=== PATIENT | male | born 1995 | race Caucasian/White ===

== ENCOUNTER 2016-10-30 16:26 | Emergency (ER) | payer OTHER ==
--- NOTE | 2016-10-30 17:59 | XR ---
EXAMINATION TYPE: XR chest 1V portable DATE OF EXAM: 10/30/2016 COMPARISON: 08/21/2008 INDICATION: Pain and numbness in hands TECHNIQUE: Single frontal view of the chest is obtained. FINDINGS: The heart size is normal. The pulmonary vasculature is normal. The lungs are clear. IMPRESSION: 1. No acute pulmonary process.
--- NOTE | 2016-10-30 18:38 | ED ---
General Adult HPI - General Chief complaint: Shortness of Breath Stated complaint: Difficulty Breathing/Numbness in Hands Time Seen by Provider: 10/30/16 17:00 Source: patient Mode of arrival: ambulatory Limitations: no limitations - History of Present Illness Initial comments: Patient is a 21-year-old male with history of anxiety, exercise-induced asthma presenting with shortness of breath. Patient states he been having cough congestion for the past 4 days. Denies sick contacts. Patient's been trying roommates albuterol with some relief. Patient denies fever, productive sputum, chest pain, abdominal pain, nausea, vomiting, diarrhea, dysuria. Patient followed up with [facility] yesterday having a chest x-ray and was given antibiotics. Patient has been unable to pay for the antibiotics. - Related Data Home Medications Medication Instructions Recorded Confirmed Albuterol Inhaler [Ventolin Hfa 1 - 2 puff INHALATION RT-QID PRN 10/30/16 Inhaler] FLUoxetine HCL [PROzac] 20 mg PO DAILY 10/30/16 10/30/16 Loratadine [Claritin] 10 mg PO DAILY 10/30/16 10/30/16 Allergies Allergy/AdvReac Type Severity Reaction Status Date / Time No Known Allergies Allergy Verified 10/30/16 17:55 Review of Systems ROS Statement: Those systems with pertinent positive or pertinent negative responses have been documented in the HPI. Constitutional: No fever and no chills. HENT: +congestion, no rhinorrhea and no sore throat. Eyes: No discharge and no redness. Respiratory: +cough and +shortness of breath. Cardiovascular: No chest pain and no palpitations. Gastrointestinal: No nausea, no vomiting, no abdominal pain and no diarrhea. Genitourinary: No dysuria and no hematuria. Musculoskeletal: No back pain and no arthralgias. Skin: No pallor and no rash. Neurological: No dizziness and No headaches. ROS Other: All systems not noted in ROS Statement are negative. Past Medical History Past Medical History: No Reported History History of Any Multi-Drug Resistant Organisms: None Reported Past Surgical History: No Surgical Hx Reported Past Psychological History: No Psychological Hx Reported Smoking Status: Current every day smoker Past Alcohol Use History: Rare Past Drug Use History: None Reported General Exam - General Exam Comments Initial Comments: Constitutional: Patient appears well-developed and well-nourished. No distress. Patient with harsh cough. When talking about patient's breathing he will intermittently talk in one-word sentences however when talking about something interesting to patient he is able to talk in complete sentences Head: Normocephalic and atraumatic. Eyes: Conjunctivae and EOM are normal. Right eye exhibits no discharge. Left eye exhibits no discharge. No scleral icterus. Neck: Normal range of motion. Neck supple. Cardiovascular: Normal rate and regular rhythm. No murmur heard. Pulmonary/Chest: Effort normal and breath sounds normal. No respiratory distress. No wheezes. Abdominal: Soft. No distension. There is no tenderness. There is no rebound and no guarding. Musculoskeletal: Normal range of motion. No edema or tenderness. Neurological: Patient alert and oriented to person, place, and time. Skin: Skin is warm and dry. Not diaphoretic. Nursing notes and vitals reviewed. Limitations: no limitations Course Vital Signs 10/30/16 10/30/16 10/30/16 16:50 17:08 17:14 Temperature 98.1 F Pulse Rate 102 H 80 Respiratory 20 18 20 Rate Blood Pressure 176/74 145/75 O2 Sat by Pulse 98 99 Oximetry 10/30/16 10/30/16 17:58 18:42 Temperature 98.0 F Pulse Rate 75 57 L Respiratory 18 16 Rate Blood Pressure 136/75 139/80 O2 Sat by Pulse 96 96 Oximetry - Reevaluation(s) Reevaluation #1: On reevaluation patient is resting comfortably in bed. Updated on unremarkable chest x-ray. Instructed not to take antibiotics given by urgent care as they did not give a clear-cut reason as to why prescribing him antibiotics and with the current setting of possible viral syndrome. Medical Decision Making - Medical Decision Making Patient is a 21-year-old male presenting with shortness of breath, cough, congestion. Patient presents very anxious with intermittent episodes and talking in clear sentences as well as one-word sentences. Patient is to tobacco abuse as well as marijuana for his anxiety. Patient had an unremarkable chest x-ray here. Patient resting much more comfortable and better without treatment. Patient clear for discharge with outpatient follow- up with his PCP. Prior to discharge, patient was resting comfortably in bed. Course of stay improved. Denies pain. Discussed physical exam and diagnostic tests with patient. Questions answered and patient is agreeable to discharge with close follow up with Primary Care Physician. Instructed to return to Emergency Department if symptoms worsen. Disposition Clinical Impression: Cough, Chest congestion, SOB (shortness of breath), Anxiety Disposition: HOME SELF-CARE Condition: Good Instructions: Asthma (ED), Cold Symptoms (ED) Referrals: Eric Vieyra Jr, DO [Primary Care Provider] - 1-2 days
[2016-10-30 18:43] VITALS: BP 139/80; PULSE 57; RESP 16; TEMP 98
== END 2016-10-30 18:44 | disposition home or self-care (01) ==
LOC: EC 16:26
DX: R06.02 Shortness of breath (principal); R05 Cough; R09.89 Other specified symptoms and signs involving the circulatory and respiratory systems; F41.9 Anxiety disorder, unspecified; F17.200 Nicotine dependence, unspecified, uncomplicated; Z79.899 Other long term (current) drug therapy
CPT/HCPCS: 71010; 99284

== ENCOUNTER 2017-12-08 10:29 | Emergency (ER) | payer BC, OTHER ==
[2017-12-08 10:39] VITALS: BP 126/77; PULSE 95; RESP 18; TEMP 98.3
[2017-12-08] MEDS ORDERED: AZITHROMYCIN 500 MG TAB PO STA (10:55)
[2017-12-08] MEDS ORDERED: cefTRIAXone 250 MG VIAL IM STA (10:55)
--- NOTE | 2017-12-08 10:56 | ED ---
General Adult HPI - General Chief complaint: Upper Respiratory Infection Stated complaint: poss strep Time Seen by Provider: 12/08/17 10:46 Source: patient, RN notes reviewed, old records reviewed Mode of arrival: ambulatory - History of Present Illness Initial comments: This is a 22-year-old male to the ER for evaluation. This male presents for evaluation regards to positive possible strep throat. Patient states that upper extremity infection for about 2-3 days of cough congestion and increasing sore throat. Patient is no medical history takes no medications no significant known sick contacts. No fevers. No difficulty breathing. No pain. Patient has mild pain with swallowing. Patient upon leaving the room states he also wants to be checked for STD - Related Data Previous Rx's Medication Instructions Recorded Amoxicillin 500 mg PO Q8H #30 capsule 12/08/17 Allergies Allergy/AdvReac Type Severity Reaction Status Date / Time No Known Allergies Allergy Verified 12/08/17 10:50 Review of Systems ROS Statement: Those systems with pertinent positive or pertinent negative responses have been documented in the HPI. ROS Other: All systems not noted in ROS Statement are negative. Past Medical History Past Medical History: No Reported History History of Any Multi-Drug Resistant Organisms: None Reported Past Surgical History: No Surgical Hx Reported Past Psychological History: No Psychological Hx Reported Smoking Status: Former smoker Past Alcohol Use History: Rare Past Drug Use History: None Reported General Exam General appearance: alert, in no apparent distress Head exam: Present: atraumatic, normocephalic, normal inspection Eye exam: Present: normal appearance, PERRL, EOMI. Absent: scleral icterus, conjunctival injection, periorbital swelling ENT exam: Present: normal exam, mucous membranes moist, other (Bilateral tonsillar erythema) Neck exam: Present: normal inspection. Absent: tenderness, meningismus, lymphadenopathy Respiratory exam: Present: normal lung sounds bilaterally. Absent: respiratory distress, wheezes, rales, rhonchi, stridor Cardiovascular Exam: Present: regular rate, normal rhythm, normal heart sounds. Absent: systolic murmur, diastolic murmur, rubs, gallop, clicks GI/Abdominal exam: Present: soft, normal bowel sounds. Absent: distended, tenderness, guarding, rebound, rigid Extremities exam: Present: normal inspection, full ROM, normal capillary refill. Absent: tenderness, pedal edema, joint swelling, calf tenderness Back exam: Present: normal inspection Neurological exam: Present: alert, oriented X3, CN II-XII intact Psychiatric exam: Present: normal affect, normal mood Skin exam: Present: warm, dry, intact, normal color. Absent: rash Course Vital Signs 12/08/17 10:36 Temperature 98.3 F Pulse Rate 95 Respiratory 18 Rate Blood Pressure 126/77 O2 Sat by Pulse 98 Oximetry Medical Decision Making - Medical Decision Making 22 male the ER with pharyngitis on exam. Patient also has positive symptoms of STI, will treat appropriately - Lab Data Lab Results 12/08/17 Range/Units 11:01 Urine Color Yellow Urine Appearance Clear (Clear) Urine pH 6.5 (5.0-8.0) Ur Specific [place] 1.024 (1.001-1.035) Urine Protein Trace H (Negative) Urine Glucose (UA) Negative (Negative) Urine Ketones Negative (Negative) Urine Blood Negative (Negative) Urine Nitrite Negative (Negative) Urine Bilirubin Negative (Negative) Urine Urobilinogen <2.0 (<2.0) mg/dL Ur Leukocyte Esterase Negative (Negative) Disposition Clinical Impression: Upper respiratory infection, Pharyngitis Disposition: HOME SELF-CARE Condition: Good Instructions: Upper Respiratory Infection (ED) Prescriptions: Amoxicillin 500 mg PO Q8H #30 capsule Is patient prescribed a controlled substance at d/c from ED?: No Referrals: Eric Vieyra Jr, DO [Primary Care Provider] - 1-2 days
[2017-12-08 11:16] LABS: Appearance,Urine Clear (Clear); Bilirubin,Urine Negative (Negative); Blood,Urine Negative (Negative); Color,Urine Yellow; Glucose,Urine (UA) Negative (Negative); Ketones,Urine Negative (Negative); Leukocyte Esterase,Urine Negative (Negative); Nitrite,Urine Negative (Negative); PH, Urine 6.5 (5.0-8.0); Protein,Urine Trace (Negative); Specific Gravity,Urine 1.024 (1.001-1.035); Urobilinogen,Urine <2.0 mg/dL (<2.0)
[2017-12-09 13:09] LABS: C. trachomatis,PCR Negative (Neg,Equiv); Chlamydia trachomatis Source Urine
[2017-12-09 13:33] LABS: N. gonorrhoeae,PCR Negative (Neg,Equiv); Neisseria Source Urine
== END 2017-12-08 11:15 | disposition home or self-care (01) ==
LOC: EC 10:29
DX: J02.9 Acute pharyngitis, unspecified (principal); Z87.891 Personal history of nicotine dependence
CPT/HCPCS: 81003; 87491; 87591; 87086; 99284; 96372; J0696

== ENCOUNTER 2019-10-28 16:05 | Emergency (ER) | payer BC, OTHER ==
[2019-10-28 16:21] VITALS: BP 118/75; PULSE 60; RESP 18; TEMP 98.1
--- NOTE | 2019-10-28 16:40 | XR ---
EXAMINATION TYPE: XR knee complete RT DATE OF EXAM: 10/28/2019 CLINICAL HISTORY: Pain since falling injury a week ago. Swelling and bruising. TECHNIQUE: Three views of the right knee are obtained. COMPARISON: None. FINDINGS: There is no acute fracture/dislocation evident in right knee. Tricompartmental joint space s are maintained without significant spurring. The overlying soft tissue appears unremarkable. IMPRESSION: There is no acute fracture or dislocation in the right knee.
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
== END 2019-10-28 17:16 | disposition home or self-care (01) ==
LOC: EC 16:05
DX: S80.01XA Contusion of right knee, initial encounter (principal); W18.39XA Other fall on same level, initial encounter; Z87.891 Personal history of nicotine dependence
CPT/HCPCS: 99283

== ENCOUNTER 2020-06-06 00:10 | Inpatient (IN) | payer MEDICAID, OTHER ==
[2020-06-06] MEDS ORDERED: ONDANSETRON 4 MG/2 ML VIAL IVP STA (00:31)
[2020-06-06] MEDS ORDERED: DIPH,PERTUS(ACELL)TETVAC-LF 0.5 ML VIAL IM ONE (00:31)
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
--- NOTE | 2020-06-06 00:58 | CT ---
EXAM: CT Head Without Intravenous Contrast CLINICAL HISTORY: ITS.REASON CT Reason: self inflicted head injury TECHNIQUE: Axial computed tomography images of the head/brain without intravenous contrast. CTDI is 45.2 mGy and DLP is 1048 mGy-cm. This CT exam was performed using one or more of the following dose reduction techniques: automated exposure control, adjustment of the mA and/or kV according to patient size, and/or use of iterative reconstruction technique. COMPARISON: No relevant prior studies available. FINDINGS: Brain: No acute hemorrhage, large hypodensity, or significant mass effect. Ventricles: No significant abnormality. Bones/joints: No acute abnormality. Soft tissues: No significant abnormality. Sinuses: No significant abnormality. Mastoid air cells: No significant abnormality. IMPRESSION: No acute intracranial hemorrhage or calvarial fracture. EXAM: CT Cervical Spine Without Intravenous Contrast CLINICAL HISTORY: ITS.REASON CT Reason: self inflicted head injury TECHNIQUE: Axial computed tomography images of the cervical spine without intravenous contrast. CTDI is 16.3 mGy and DLP is 492 mGy-cm. This CT exam was performed using one or more of the following dose reduction techniques: automated exposure control, adjustment of the mA and/or kV according to patient size, and/or use of iterative reconstruction technique. COMPARISON: No relevant prior studies available. FINDINGS: Vertebrae: No acute fracture or malalignment. Straightening of the normal cervical lordosis. Discs/spinal canal/neural foramina: No acute findings. No significant osseous spinal stenosis. Soft tissues: No significant abnormality. IMPRESSION: No acute fracture or malalignment.
[2020-06-06 04:36] LABS: Amphetamine Screen,Urine Not Detected (NotDetected); Barbiturate Screen,Urine Not Detected (NotDetected); Benzodiazepines Screen,Urine Not Detected (NotDetected); Cocaine Screen,Urine Not Detected (NotDetected); Methadone Screen, Urine Not Detected (NotDetected); Opiate Screen,Urine Not Detected (NotDetected); Oxycodone Screen, Urine Not Detected (NotDetected); Phencyclidine Screen,Urine Not Detected (NotDetected); Tricyclic Antidepressant,Urine Not Detected (NotDetected); Urn Cannabinoid Scrn Detected (NotDetected)
[2020-06-06] MEDS ORDERED: MAG HYDROX/AL HYDROX/SIMETH 30 ML CUP PO PRN (09:01)
[2020-06-06] MEDS: ACETAMINOPHEN TAB 325 MG TAB PO PRN ×2 (10:43→16:15)
[2020-06-06] MEDS ORDERED: traZODone HCL 50 MG TAB PO PRN (11:20)
--- NOTE | 2020-06-06 11:36 | P.HP ---
Psychiatric H&P - . H&P Date: 06/06/20 History & Physical: Allergies Allergy/AdvReac Type Severity Reaction Status Date / Time No Known Allergies Allergy Verified 10/28/19 16:21 Vital Signs Temp 98.0 F 06/06/20 10:52 Pulse 88 06/06/20 06:20 Resp 18 06/06/20 06:20 BP 144/80 06/06/20 06:20 Pulse Ox 97 06/06/20 06:20 Intake & Output 06/05/20 06/06/20 06/06/20 18:59 06:59 18:59 Weight 90.1 kg Laboratory Last Values Urine Opiates Screen Not Detected (NotDetected) 06/06/20 04:13 Ur Oxycodone Screen Not Detected (NotDetected) 06/06/20 04:13 Urine Methadone Screen Not Detected (NotDetected) 06/06/20 04:13 Ur Propoxyphene Screen Not Detected (NotDetected) 06/06/20 04:13 Ur Barbiturates Screen Not Detected (NotDetected) 06/06/20 04:13 U Tricyclic Antidepress Not Detected (NotDetected) 06/06/20 04:13 Ur Phencyclidine Scrn Not Detected (NotDetected) 06/06/20 04:13 Ur Amphetamines Screen Not Detected (NotDetected) 06/06/20 04:13 U Methamphetamines Scrn Not Detected (NotDetected) 06/06/20 04:13 U Benzodiazepines Scrn Not Detected (NotDetected) 06/06/20 04:13 Urine Cocaine Screen Not Detected (NotDetected) 06/06/20 04:13 U Marijuana (THC) Screen Detected (NotDetected) H 06/06/20 04:13 Coronavirus (PCR) Not Detected (Not Detectd) 06/06/20 05:10 06/06/20 11:27 IDENTIFYING DATA: Patient is a 25-year-old male with a history of depression who currently lives in a trailer with a roommate has no kids and 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 HPI: Patient presented to the hospital yesterday with complaints of depression, suicidal ideations ongoing for over 5 years according to the ER report. Patient allegedly had hit his head against the wall at his home in an attempt to kill himself. Patient was petitioned by a records officer who stated that he had "struck his head on the connor causing injury and has considered hanging himself". Patient had a computed tomography scan of his head in the ER which showed to be negative. UDS was positive for THC. Patient was admitted involuntarily to the mental unit for treatment. Patient was seen today by specifications writer and was fairly uncooperative, guarded and minimizing his need for hospitalization and treatment. He claims that he has been dealing with depression for several years and states that he was clinically dosed when he was "4 years old". He states that he received a call from his ex-girlfriend sister. He states that she called them because he had been calling the girlfriend several times "wanting closure". He states that she told him that he is "wasting his time and his breath" trying to contact her and to stop trying. He states that he was very upset after this phone call and began drinking heavily. He states that he called another friend and told him that he was feeling suicidal. He states that after that phone call he hit his head multiple times against the wall and was noticed to be bleeding and continued to drink once again. He states that he does not know how he got to the hospital. He claims that he wants to be discharged today because he has dogs to take care of. He claims that he is dealing with anxiety and depression. He claims that he has been self-medicating with marijuana for several years and has been off medications for approximately 3-4 years. He states that his sleep is poor. Patient denies any suicidal or homicidal ideations intent or plan. At this time patient denies any auditory or visual hallucinations. Patient denies any flight of ideas racing thoughts and increased in goal directed behavior. Patient admits to using marijuana approximately 1-3 times a day and also claims that he drinks alcohol occasionally however yesterday was drinking heavily. He claims that he smokes cigarettes daily. PAST PSYCHIATRIC HISTORY: Patient states that he has a history of depression and anxiety. Patient denies being on any psychiatric medications. He claimed that he used to be on psychiatric medications for depression however was over 4 years ago and does not remember their names. Patient denies any previous psychiatric hospitalizations. Patient denies any psychiatric outpatient follow-up. Patient denies any history of suicide attempts in the past. PMH:denies ALLERGIES: as per EMR CHEMICAL DEPENDENCY HISTORY: as per HPI FAMILY PSYCHIATRIC/SUBSTANCE USE HISTORY: He states that he was adopted however his biological mother and father he claims suffered from depression and anxiety. SOCIAL HISTORY: Patient was born and raised in [facility] and states that he was then moved to [place] as he was adopted at 16 months. He states that he completed high school and did some college. He states that he does not have any children and currently lives with a roommate in a trailer. He claims that he did go to [employer] as a child however did not want to talk about charges. MENTAL STATUS EXAM: General Appearance: Patient appears to be stated age is alert, directable, however is uncooperative and guarded/evasive at times. Patient appears to have poor hygiene and grooming. Behavior: Patient is seated without any agitated behavior. Guarded/evasive Speech: Patient's speech is fluent and nonpressured. Mood/Affect: Patient reports their mood is depressed, affect is congruent and constricted. Suicidality/Homicidality: Patient denies having any homicidal ideation intent or plan. Denies any suicidal ideations intent or plan Perceptions: Patient denies any visual hallucinations and denies any auditory hallucinations Though content/process: Patient is preoccupied with discharge. Logical. Goal oriented. Minimizing his symptoms. Memory and concentration: AOX3, grossly intact for the purposes of this session. Can spell "WORLD" backwards Judgment and insight: poor STRENGTHS/WEAKNESSES: strength is that patient is resilient. Weakness is that patient has poor judgment and is impulsive INTELLECT: average IMPRESSIONS: Major depressive disorder, recurrent, severe without psychotic features Alcohol abuse Cannabis use disorder Nicotine dependence PLAN: -Patient is admitted under involuntary status to MHU for stabilization of psychiatric symptoms and safety. Patient has signed medication consent and is placed in patient's chart. A second certification was completed and along with petition will be filed for court. -Medications : Will start patient on Zoloft 50 mg daily for mood/anxiety. Patient is agreeable to take melatonin 6 mg daily at bedtime for insomnia. Added trazodone 25 mg daily at bedtime when necessary for insomnia. -Ativan and Haldol PRN for agitation/aggression -Patient was counselled on substance abuse and desired to cut back on use however was fairly superficial about his marijuana use -Patient was informed of the risks, benefits and side effects of the medication and patient verbally consented to taking the medications. Patient signed med consent form and was placed in chart. -Internal Medicine consult to perform medical evaluation and physical. -NRT - nicotine patch -SW on board for discharge planning. Encourage patient to participate in groups to work on coping skills. Will await deferral and court date.
[2020-06-06] MEDS: NICOTINE 14MG/24HR PATCH TRANSDERM SCH (11:46)
[2020-06-06] MEDS: SERTRALINE 50 MG TAB PO SCH (11:46)
[2020-06-06 17:45] LABS: Hemoglobin A1C 5.8 % (4.0-6.0)
[2020-06-06] MEDS: MELATONIN 3 MG TABLET PO SCH (21:27)
--- NOTE | 2020-06-06 22:28 | P.MDCNMH ---
History of Present Illness H&P Date: 06/06/20 Chief Complaint: medical evaluation 25 year old male with depression , not currently on medications patient comes in due to suicidal ideation and depression , he has been trying to hit his head with a wall to kill himself. he admits to quitting taking his medications years ago, as it made him feel off. instead he has been using marijuana to make him sleep and feel better. he otherwise denies any fever, chills, URI symptoms, GI changes, skin rashes. patient admits to rare alcohol use, but tobacco smoking and regular marijuana use, no other drugs reported. Review of Systems Pertinent positives as noted in HPI. All other systems were reviewed and are negative Past Medical History Past Medical History: No Reported History History of Any Multi-Drug Resistant Organisms: None Reported Past Surgical History: No Surgical Hx Reported Past Psychological History: No Psychological Hx Reported Smoking Status: Current every day smoker Past Alcohol Use History: Rare Past Drug Use History: Marijuana - Past Family History fa,patricia Family Medical History: No Reported History Medications and Allergies Home Medications Medication Instructions Recorded Confirmed Type Amoxicillin 500 mg PO Q8H #30 capsule 12/08/17 Rx Allergies Allergy/AdvReac Type Severity Reaction Status Date / Time No Known Allergies Allergy Verified 10/28/19 16:21 Physical Exam Vitals: Vital Signs Temp Pulse Pulse Resp BP BP Pulse Ox 06/06/20 18:43 97.4 F L 06/06/20 10:52 98.0 F 06/06/20 06:20 97.9 F 88 18 144/80 97 06/06/20 04:30 97.9 F 72 18 131/82 98 06/06/20 00:11 98.0 F 63 18 144/76 99 Intake and Output 06/06/20 06/06/20 06/06/20 06:59 14:59 22:59 Other: Weight 90.1 kg Constitutional: No acute distress, conversant, pleasant Eyes: Anicteric sclerae, moist conjunctiva, Pupils equal round reactive to light ENMT: NC/AT Oropharynx clear, no erythema, or exudates Neck: Supple, FROM, no masses, or JVD No carotid bruits No thyromegaly Lungs: Clear to auscultation Clear to percussion Normal respiratory effort, no accessory muscle use Cardiovascular: Heart regular in rate and rhythm, No murmurs, gallops, or rubs No peripheral edema Abdominal: Soft Nontender, no guarding, rebound or rigidity Abdomen moving with respiration Normoactive bowel sounds No hepatomegaly, No splenomegaly No palpable mass No abdominal wall hernia noted Skin: Normal temperature, tone, texture, turgor No induration No subcutaneous nodules No rash, lesions No ulcers Extremities: No digital cyanosis No clubbing Pedal pulses intact and symmetrical Radial pulses intact and symmetrical No calf tenderness Psychiatric: Alert and oriented to person, place and time flat affect fair judgement Neuro Muscles Strength 5/5 in all 4 extremities Sensation to light touch grossly present throughout Cranial nerves II-XII grossly intact No focal sensory deficits Lymphatics: no palpable cervical or supraclavicular , or inguinal lymph nodes Cranial Nerve Examination - Cranial Nerves Cranial Nerve II- Optic: Intact Cranial Nerve III- Oculomotor: Intact Cranial Nerve IV- Trochlear: Intact Cranial Nerve V- Trigeminal: Intact Cranial Nerve - Abducens: Intact Cranial Nerve VII- Facial: Intact Cranial Nerve VIII- Auditory: Intact Cranial Nerve IX- Glossopharyngeal: Intact Cranial Nerve X- Vagus: Intact Cranial Nerve XI- Accessory: Intact Cranial Nerve XII- Hypoglossal: Intact Results Labs: Abnormal Lab Results - Last 24 Hours (Table) 06/06/20 Range/Units 04:13 U Marijuana (THC) Screen Detected H (NotDetected) Assessment and Plan Assessment: depression , suicide ideation management per psych tobacco smoking counseled to quit smoking , nicotine replacement therapy offered obesity counseled regarding healthy life style , and weight loss follow up labs Thank you for allowing us to participate in the care of this patient. We will follow peripherally. Do not hesitate to contact us with questions. Someone can be reached from the [facility] hospitalist group at all hours of the day at [phone].
[2020-06-07 07:23] LABS: Basophils # (A) 0.1 k/uL (0-0.2); Basophils % (A) 1 %; Eosinophils # (A) 0.2 k/uL (0-0.7); Eosinophils % (A) 2 %; HCT 45.1 % (39.0-53.0); HGB 15.1 gm/dL (13.0-17.5); Lymphocytes # (A) 2.3 k/uL (1.0-4.8); Lymphocytes % (A) 26 %; MCH 30.1 pg (25.0-35.0); MCHC 33.5 g/dL (31.0-37.0); MCV 89.7 fL (80.0-100.0); Mean Platelet Volume 8.4; Monocytes # (A) 0.8 k/uL (0-1.0); Monocytes % (A) 9 %; Neutrophils # (A) 5.2 k/uL (1.3-7.7); Neutrophils % (A) 60 %; Platelet Count 275 k/uL (150-450); RBC 5.03 m/uL (4.30-5.90); RDW 12.5 % (11.5-15.5); WBC 8.7 k/uL (3.8-10.6)
[2020-06-07 07:37] LABS: ALT 20 U/L (4-49); AST 28 U/L (17-59); African American GFR (CKD) >90 (>60 ml/min/1.73 sqM); Albumin 4.6 g/dL (3.5-5.0); Alkaline Phosphatase 73 U/L (38-126); Anion Gap 3 mmol/L; Blood Urea Nitrogen 15 mg/dL (9-20); Calcium 10.1 mg/dL (8.4-10.2); Carbon Dioxide 34 mmol/L (22-30); Chloride 103 mmol/L (98-107); Glucose 104 mg/dL (74-99); Non-African American GFR(CKD) >90 (>60 ml/min/1.73 sqM); Potassium 5.5 mmol/L (3.5-5.1); Sodium 140 mmol/L (137-145); Total Bilirubin 0.6 mg/dL (0.2-1.3); Total Protein 7.6 g/dL (6.3-8.2)
[2020-06-07] MEDS: SERTRALINE 50 MG TAB PO SCH (08:04)
[2020-06-07] MEDS: NICOTINE 14MG/24HR PATCH TRANSDERM SCH (08:05)
[2020-06-07] MEDS: ACETAMINOPHEN TAB 325 MG TAB PO PRN ×2 (08:05→12:53)
[2020-06-07] MEDS ORDERED: IBUPROFEN 600 MG TAB PO PRN (09:47)
--- NOTE | 2020-06-07 10:13 | P.PN ---
Progress Note - Text Progress Note Date: 06/07/20 Interval History: Patient was seen lying in his bed this morning and was directable and agreeable to speak with chief writer in the office. Patient states that he is doing "all right today" however hasn't incongruent and constricted affect. He claims that he is been having some mild headaches due to the head injury that he sustained at home. Patient was agreeable to also have ibuprofen ordered for the headache however denies any changes in vision or dizziness or numbness or tingling. He states that he was able to sleep throughout the night approximately 9 hours. He claims that he did not go to any groups yesterday due to his headaches however was encouraged to do so today. He claims that his energy is fair. He continues to be preoccupied with discharge and minimizing his hospitalization. At this time patient denies any suicidal or homical ideations, intent or plan. Patient denies any auditory, visual hallucinations and denies any paranoia or delusions. Patient denies any side effects from the medications and has been compliant with meds. Mental Status Exam: General Appearance: Patient appears to be stated age is alert, directable, however is superficially cooperative. Patient appears to have mildly improving hygiene and grooming. Behavior: Patient is seated without any agitated behavior. Guarded/evasive, improving mildly Speech: Patient's speech is fluent and nonpressured. Mood/Affect: Patient reports their mood is "alright", affect is incongruent and constricted. Suicidality/Homicidality: Patient denies having any homicidal ideation intent or plan. Denies any suicidal ideations intent or plan Perceptions: Patient denies any visual hallucinations and denies any auditory hallucinations Though content/process: Patient is preoccupied with discharge. Logical. Goal oriented. Minimizing his symptoms, improving mildly. Memory and concentration: AOX3, grossly intact for the purposes of this session. Judgment and insight: poor, improving mildly Assessment Major depressive disorder, recurrent, severe without psychotic features Alcohol abuse Cannabis use disorder Nicotine dependence Plan: -Patient continues to meet criteria for inpatient psychiatric admission for symptom stabilization and safety. Patient has signed medication consent and was placed in patient's chart. -Medications: Increase Zoloft to 100 mg daily for mood/anxiety. Continue with melatonin 6 mg daily at bedtime for insomnia. Continue trazodone 25 mg daily at bedtime when necessary for insomnia. -When necessary Ativan and Haldol for agitation/aggression. -NRT - nicotine patch -SW on board for discharge planning. Encouraged the patient to participate in milieu. Currently awaiting deferral and full court hearing date.
[2020-06-07] MEDS: MELATONIN 3 MG TABLET PO SCH (22:36)
[2020-06-08] MEDS: NICOTINE 14MG/24HR PATCH TRANSDERM SCH (08:24)
[2020-06-08] MEDS: SERTRALINE 100 MG TAB PO SCH (08:24)
[2020-06-08] MEDS: MAGNESIUM HYDROXIDE 2,400 MG/10 ML CUP PO PRN (13:10)
--- NOTE | 2020-06-08 13:25 | P.PN ---
Progress Note - Text Progress Note Date: 06/08/20 Clinical Problems: Acute alcohol intoxication (resolved), alcohol use disorder moderate, unspecified depressive disorder, rule out major depressive disorder recurrent, cannabis use disorder, tobacco use, unspecified personality disorder Interim history: I reviewed the medical record, interviewed the patient and discuss his treatment and treatment plan during team meeting. He is a 25-year-old single male admitted to the psychiatric unit involuntarily with acute alcohol intoxication, depression and suicidal ideation. His blood alcohol level on presentation to the ER was 0.131 He stated that she became markedly intoxicated day of admission following the conversation with an ex-girlfriend sister. He has been repeatedly calling the ex-girlfriend and her sister called him demanding that he stopped trying to speak with the ex-girlfriend. This is unusual situation and that the girlfriend ended her relationship 8 years ago. He talked about reaching out to the ex- girlfriend to gain "closure". He published suicidal statements on social media and suspects that one of his friends called the police for a safety check. During our interview he expressed regret over his actions. He talked about becoming distressed after the conversation with his ex-girlfriend's sister. He attributed to depression and suicidal statements to drinking "1-2 pints" of liquor in the day of admission. He denied that he has wishes, suicidal thoughts or ideation or plan. He perseverated on discharge and returning to work. He became angry when I attempted to explain that we could not discharge him until at least his deferral hearing with an attorney law clerk. He is estranged from his adoptive family and talked about unresolved anger towards his adoptive mother. He has been in therapy "several times" since he broke up with his girlfriend. Mental status exam: He presented as a casually groomed 25-year-old male who was initially pleasant on approach. He made eye contact and attended to interview. He had no distinction features are prominent physical abnormalities. He had an anxious facial expression. He was alert and oriented to person, place and time. He showed no abnormality of psychomotor activity. His gait was slow and steady. His speech was spontaneous with normal rate and rhythm. His affect was anxious but appropriate. He became irritable and angry when I explained the nature of his hospitalization. He denied current suicidal ideation and wishes. He denied homicidal ideation. He denied feeling hopeless, helpless or worthless. He ruminated over the circumstances that this hospitalization. He did not express ideas reference, paranoid ideation or delusions. His thinking was concrete, perseverative but coherent and logical. He denied hallucinations and did not appear to be responding to internal stimuli. Assessment: He is a young male who presented to the emergency room acutely intoxicated and history of suicidal ideation. He became intoxicated and had suicidal thoughts after an ex-girlfriend sister called him and demanded that he stop harassing and stalking her sister. Since he is recovered from detoxification he is denying suicidal ideation. He alleged she has no further plans to reach out to the ex-girlfriend. He is denying suicidal ideation, thoughts or plans. He is denying psychotic symptoms. He is denying homicidal ideation. Plan: Continue inpatient treatment. Safety precautions. Continue Zoloft 100 mg daily and trazodone 25 mg at bedtime. Melatonin 6 mg at bedtime for sleep. Encourage participation in therapeutic groups and activities. Evaluate clinical status response to treatment daily basis. Consider discharge with referral for individual therapy if he defers the involuntary hearing.
[2020-06-08 16:49] LABS: Appearance,Urine Clear (Clear); Bilirubin,Urine Negative (Negative); Blood,Urine Negative (Negative); Color,Urine Yellow; Glucose,Urine (UA) Negative (Negative); Ketones,Urine Negative (Negative); Leukocyte Esterase,Urine Negative (Negative); Nitrite,Urine Negative (Negative); Protein,Urine Negative (Negative); Specific Gravity,Urine 1.015 (1.001-1.035); Urobilinogen,Urine <2.0 mg/dL (<2.0)
[2020-06-08] MEDS: MELATONIN 3 MG TABLET PO SCH (23:03)
[2020-06-09 06:55] VITALS: RESP 16
[2020-06-09] MEDS: NICOTINE 14MG/24HR PATCH TRANSDERM SCH ×2 (07:38→12:08)
[2020-06-09] MEDS: SERTRALINE 100 MG TAB PO SCH (07:38)
--- NOTE | 2020-06-09 12:27 | P.PN ---
Progress Note - Text Progress Note Date: 06/09/20 Clinical Problems: Acute alcohol intoxication (resolved), alcohol use disorder moderate, unspecified depressive disorder, rule out major depressive disorder recurrent, cannabis use disorder, tobacco use, unspecified personality disorder Interim history: I reviewed the medical record, interviewed the patient and discuss his treatment and treatment plan during team meeting. He was irritable and demanding. He demanded that I discharge him today after his deferral hearing this afternoon. He alleged that he has "nothing to gain" from remaining in the hospital beyond 3 PM this afternoon. He perseverated on needing to return to work because otherwise she would not be able to make his house payments. I tried to engage in a discussion about his effort to continue a relationship with his ex-girlfriend. I explained that if he were to continue to pursue her after her sister told him that the she does not want have further contact with him, he could face legal consequences including interpersonal protective order or even charges of stalking. He became distressed by this topic of conversation and alleged that he has has a cordial relationship with his ex-girlfriend. He argued with me when I told him that the relationship could not be cordial if her sister informed him that he is not taking any further contact with her. He believes that the problem as a sister who doesn't like him. After emphasized that I don't believe he fully understands the potential consequences of his a ctions, he accused me of acting like his parents; "they kept harping on things over and over again and would never stop." After he continues to demand to leave the hospital after the probate hearing I reminded him that he is under involuntary status and agreeing to a deferral means that he would follow our treatment recommendations. He is not in the position to dictate when he would leave the hospital. Mental status exam: He presented as a angry 25-year-old male who is flexible and demanding throughout the interview. He made eye contact and appeared to attend to interview. He sat with his arms crossed and his leg shaking throughout the interview He had an angry facial expression. He was alert and oriented to person, place and time. He was tense and restless. His speech was spontaneous and his tone was accusatory. His affect was angry and controlled. He became irritable and angry when I explained the if he were to continue to pursue his ex-girlfriend that he could be subject to legal consequences either a personal protective order written charges of stalking. He denied current suicidal ideation and wishes. He denied homicidal ideation. He denied feeling hopeless, helpless or worthless. He ruminated over the circumstances that this hospitalization. He did not express ideas reference, paranoid ideation or delusions. His thinking was concrete, perse verative but coherent and logical. He denied hallucinations and did not appear to be responding to internal stimuli. Assessment: He is denying suicidal or homicidal ideation. He remains angry over this hospitalization and does not appreciate the consequences of continuing to pursue a relationship with his ex-girlfriend. Plan: Continue inpatient treatment. Safety precautions. Continue Zoloft 100 mg daily, increase trazodone to 50 mg PRN for sleep. Melatonin 6 mg at bedtime for sleep. Encourage participation in therapeutic groups and activities. Evaluate clinical status response to treatment daily basis. His deferral hearing is later this afternoon. Plan to discharge on 06/10/2020
[2020-06-09] MEDS ORDERED: traZODone HCL 50 MG TAB PO SCH (21:00)
[2020-06-10] MEDS: MELATONIN 3 MG TABLET PO SCH (02:12)
[2020-06-10 07:05] VITALS: BP 100/55; PULSE 46; TEMP 97.4
[2020-06-10] MEDS: SERTRALINE 100 MG TAB PO SCH (07:48)
[2020-06-10] MEDS: NICOTINE 14MG/24HR PATCH TRANSDERM SCH ×2 (07:48→10:46)
[2020-06-10 09:14] LABS: African American GFR (CKD) >90 (>60 ml/min/1.73 sqM); Anion Gap 8 mmol/L; Blood Urea Nitrogen 18 mg/dL (9-20); Calcium 9.9 mg/dL (8.4-10.2); Carbon Dioxide 32 mmol/L (22-30); Chloride 100 mmol/L (98-107); Glucose 98 mg/dL (74-99); Non-African American GFR(CKD) >90 (>60 ml/min/1.73 sqM); Potassium 4.9 mmol/L (3.5-5.1); Sodium 140 mmol/L (137-145)
--- NOTE | 2020-06-10 10:00 | P.DS ---
Providers Date of admission: 06/06/20 05:22 Attending physician: Aleks Remy MD Consults: 06/06/20 09:01 Consult Physician Routine Consulting Provider: Radha Hawkins Consult Reason/Comments: H and P Do you want consulting provider notified?: Yes Primary care physician: Stated None - Discharge Diagnosis(es) (1) Acute alcohol intoxication Current Visit: Yes Status: Resolved Priority: Low (2) Alcohol use disorder, mild, abuse Current Visit: Yes Status: Chronic Priority: Low (3) Major depressive disorder with single episode, in partial remission Current Visit: Yes Status: Chronic Priority: Medium (4) Cannabis use disorder, mild, abuse Current Visit: Yes Status: Chronic Priority: Low (5) Tobacco use Current Visit: Yes Status: Chronic Priority: Low (6) History of ADHD Current Visit: Yes Status: Chronic Priority: Medium Hospital Course: HISTORY: He is a 25-year-old single male admitted to the psychiatric unit involuntarily with acute alcohol intoxication, depression and suicidal ideation. His blood alcohol level on presentation to the ER was 0.131. According to the medical record EMS brought him to the ER for hitting his head on the wall and expressing suicidal thoughts. He stated that she became markedly intoxicated day of admission following the conversation with an ex-girlfriend sister. He has been repeatedly calling the ex-girlfriend and her sister called him demanding that he stopped trying to speak with the ex-girlfriend. This is unusual situation and that the girlfriend ended her relationship 8 years ago. He talked about reaching out to the ex- girlfriend to gain "closure". He published suicidal statements on social media and suspects that one of his friends called the police for a safety check. During our interview he expressed regret over his actions. He talked about becoming distressed after the conversation with his ex-girlfriend's sister. He attributed to depression and suicidal statements to drinking "1-2 pints" of liquor in the day of admission. He denied that he has wishes, suicidal thoughts or ideation or plan. He perseverated on discharge and returning to work. He became angry when I attempted to explain that we could not discharge him until at least his deferral hearing with an tax associate attorney. He is estranged from his adoptive family and talked about unresolved anger towards his adoptive mother. He has been in therapy "several times" since he broke up with his girlfriend. His history of depression and anxiety and had prior treatments with antidepressants. He had no prior psychiatric hospitalizations. He was diagnosed with ADHD as a child and treated with psychostimulants including Concerta, Adderall and Ritalin during his K-12 education. He denied history of suicide attempts or gestures. HOSPITAL COURSE: We admitted him involuntarily to the psychiatric unit under the care of this radio news writer. We provided a comprehensive biopsychosocial assessment. The application support consultant gas line repairer completed initial physical exam and medical history and diagnosis depression, tobacco smoking and obesity. The application support consultant recommended nicotine replacement in counseling on healthy lifestyle and weight loss. We treated his depression symptoms with Zoloft at doses 100 mg daily. We also prescribed trazodone 50 mg at bedtime when necessary for sleep. He posed no management problems and had no episodes of behavioral dyscontrol. He was i rritable and demanding throughout much of the hospitalization and showed little insight or understanding of circumstances that brought him to the hospital. After starting antidepressant he became less irritable. He engaged in therapeutic groups and activities. He has some understanding that his actions toward ex-girlfriend may place him in jeopardy for legal consequences and voiced that he has no further plans to contact her. He met with the court appointed tax associate attorney and deferred his probate hearing on 06/09/2020. MENTAL STATUS ON DISCHARGE: At the time of discharge she presented as a casually groomed young male who was pleasant on approach. He made eye contact and attended to interview. He apologized for his angry outbursts yesterday when I declined his request to be discharged. He had a bright facial expression. He was alert and oriented to person, place and time. He showed no abnormality of psychomotor activity. His affect was bright, stable and appropriate. He denied suicidal ideation or wishes. He denied homicidal ideation. He did not express ideas reference, paranoid ideation or delusions. His thinking was coherent, logical and goal directed. He denied hallucinations did not appear to responding to internal stimuli. DISPOSITION: Return to his former address. He has an intake appointment [facility] on 06/11/2020 at 9:30 AM. His discharge medications include Habitrol 14 mg patch daily, sertraline 100 mg daily and trazodone 50 mg at bedtime when necessary for sleep. Patient Condition at Discharge: Stable Plan - Discharge Summary Discharge Rx Participant: No New Discharge Prescriptions: New traZODone HCL [Desyrel] 50 mg PO HS PRN #30 tab PRN Reason: Insomnia Nicotine 14Mg/24Hr Patch [Habitrol] 1 patch TRANSDERM DAILY patch Sertraline [Zoloft] 100 mg PO DAILY #30 tab Discontinued Amoxicillin 500 mg PO Q8H #30 capsule Discharge Medication List Nicotine 14Mg/24Hr Patch [Habitrol] 1 patch TRANSDERM DAILY patch 06/10/20 [Rx] Sertraline [Zoloft] 100 mg PO DAILY #30 tab 06/10/20 [Rx] traZODone HCL [Desyrel] 50 mg PO HS PRN #30 tab 06/10/20 [Rx] Follow up Appointment(s)/Referral(s): [facility] [Outside] - 06/11/20 9:30 am (Appointment 06/11/20 at 9:30 am with Christophe over the telephone.) [facility] [NON-STAFF] - 1 Week Patient Instructions/Handouts: How to Stop Smoking (DC), Depression (DC) Activity/Diet/Wound Care/Special Instructions: Activity and diet as tolerated. Avoid the use of street drugs and alcohol. Take all medications as prescribed. When you are in need of refills on your medications please contact your medical provider and/or outpatient psychiatrist to have this done. Please go to scheduled outpatient appointment for aftercare treatment. If symptoms return or become worse, call the crisis line at and/or go to the nearest emergency room for evaluation. Discharge Disposition: HOME SELF-CARE
[2020-06-10] MEDS: MAGNESIUM HYDROXIDE 2,400 MG/10 ML CUP PO PRN (11:52)
== END 2020-06-10 15:45 | disposition home or self-care (01) | DRG 885 ==
LOC: EC 00:10 → 3MHU 05:22
PROVIDERS: ADMIT Psychiatry & Neurology Psychiatry; ATTEND Psychiatry & Neurology Psychiatry
DX: F33.2 Major depressive disorder, recurrent severe without psychotic features (principal); R45.851 Suicidal ideations; F10.220 Alcohol dependence with intoxication, uncomplicated; Z20.822 Contact with and (suspected) exposure to COVID-19; F12.10 Cannabis abuse, uncomplicated; F17.200 Nicotine dependence, unspecified, uncomplicated; F41.9 Anxiety disorder, unspecified; F90.9 Attention-deficit hyperactivity disorder, unspecified type; E66.9 Obesity, unspecified; Z68.29 Body mass index [BMI] 29.0-29.9, adult; Y90.0 Blood alcohol level of less than 20 mg/100 ml; Z63.8 Other specified problems related to primary support group; Z71.6 Tobacco abuse counseling; Z91.5 Personal history of self-harm
CPT/HCPCS: 70450; 72125; 80048; 80053; 80306; 81003; 83036; 84443; 85025; 87635; 90471; 90715; 99285

== ENCOUNTER 2020-12-20 16:51 | Observation (INO) | payer BC, OTHER ==
[2020-12-20] MEDS ORDERED: HYDROmorphone 0.5 MG/0.5 ML SYRINGE IM STA (17:42)
--- NOTE | 2020-12-20 18:53 | ED ---
Back Pain HPI - General Chief Complaint: Back Pain/Injury Stated Complaint: back pain Time Seen by Provider: 12/20/20 17:13 Source: patient Limitations: no limitations - History of Present Illness Initial Comments: 25-year-old male presents to emergency department with a chief complaint of neck and back pain. Patient reports he began to feel discomfort about one week ago with gradual increase in severity. He states over the last 3 days the pain has become severe and now he has pain with any movement of his head. States moving his torso is also worse. States most of the pain is located in the lower cervical/upper thoracic region. Reports pinpoint tenderness to the region without any injuries. Denies any fevers or chills at home. He does have history of migraines and states he has been developing a migraine today but not worse than his usual. Denies any difficulty walking. - Related Data Previous Rx's Medication Instructions Recorded Sertraline [Zoloft] 100 mg PO DAILY #30 tab 06/10/20 traZODone HCL [Desyrel] 50 mg PO HS PRN #30 tab 06/10/20 Allergies Allergy/AdvReac Type Severity Reaction Status Date / Time No Known Allergies Allergy Verified 12/20/20 17:53 Review of Systems ROS Statement: Those systems with pertinent positive or pertinent negative responses have been documented in the HPI. ROS Other: All systems not noted in ROS Statement are negative. Past Medical History Past Medical History: No Reported History History of Any Multi-Drug Resistant Organisms: None Reported Past Surgical History: No Surgical Hx Reported Past Psychological History: No Psychological Hx Reported Smoking Status: Current some day smoker Past Alcohol Use History: Occasional Past Drug Use History: Marijuana - Past Family History kevin,patricia Family Medical History: No Reported History General Exam Limitations: no limitations General appearance: alert, in no apparent distress Head exam: Present: atraumatic, normocephalic, normal inspection. Absent: other Eye exam: Present: normal appearance, PERRL, EOMI Pupils: Present: normal accommodation ENT exam: Present: normal exam, normal oropharynx, mucous membranes moist Neck exam: Present: normal inspection, full ROM. Absent: tenderness Respiratory exam: Present: normal lung sounds bilaterally. Absent: respiratory distress, wheezes, rales, rhonchi, stridor, chest wall tenderness, accessory muscle use Cardiovascular Exam: Present: regular rate, normal rhythm, normal heart sounds. Absent: systolic murmur, diastolic murmur GI/Abdominal exam: Present: soft. Absent: distended, tenderness, guarding, rebound Extremities exam: Present: normal inspection, full ROM, normal capillary refill. Absent: tenderness, pedal edema, joint swelling Back exam: Present: normal inspection, tenderness, vertebral tenderness (Lower cervical upper thoracic tenderness). Absent: full ROM (Limited range of motion with full left and right rotation.), CVA tenderness (R), CVA tenderness (L), muscle spasm, paraspinal tenderness Neurological exam: Present: alert, oriented X3 Psychiatric exam: Present: normal affect, normal mood Skin exam: Present: warm, dry, intact, normal color Course Vital Signs 12/20/20 16:55 Temperature 98.6 F Pulse Rate 62 Respiratory 16 Rate Blood Pressure 133/84 O2 Sat by Pulse 97 Oximetry Medical Decision Making - Medical Decision Making 25-year-old male presents to emergency department with a chief complaint of neck and back pain. On physical examination, patient is having moderate to severe tenderness in the lower cervical, upper thoracic spine. No meningeal signs. Does not have a headache fevers or chills. Patient was given morphine and [place] with mild improvement in symptoms. CT of the cervical spine and thoracic spine without contrast revealed no acute findings. He does not have any focal neural deficits. I spoke with HAYDE Olmedo who will be on consult from orthopedics. Patient will be admitted for intractable back pain. I spoke with who will amdit. Dr Melo also evaluated patient and his agreement with the treatment plan. Disposition Clinical Impression: Intractable back pain Disposition: ADMITTED IP TO THIS HOSP Condition: Stable Is patient prescribed a controlled substance at d/c from ED?: No Referrals: None,Stated [Primary Care Provider] - 1-2 days Time of Disposition: 19:45
--- NOTE | 2020-12-20 18:56 | CT ---
EXAMINATION TYPE: CT CervThoracic spine wo con DATE OF EXAM: 12/20/2020 COMPARISON: CT cervical spine 06/06/2020 HISTORY: Midcervical and thoracic tenderness. CT DLP: 1543.4 mGycm Automated exposure control for dose reduction was used. Images were obtained from the skull base to the L1 vertebra without contrast. Cervical thoracic vertebra have normal alignment. There is no compression fracture. Posterior element s are intact. There is no evidence of paraspinal mass. I see no focal bone destruction. Skull base ap pears intact. There is normal aeration of the mastoid sinuses. Posterior ribs appear intact. IMPRESSION: Negative CT scan of the cervical and thoracic spine.
[2020-12-20] MEDS ORDERED: HYDROcodone/APAP 5-325MG 1 EACH TAB PO STA (19:24)
[2020-12-20] MEDS ORDERED: NALOXONE 0.4 MG/ML 1 ML VIAL IV PRN (19:45)
[2020-12-20] MEDS ORDERED: LORazepam 2 MG/ML INJ IV PRN (19:45)
[2020-12-20] MEDS ORDERED: HYDROcodone/APAP 5-325MG 1 EACH TAB PO PRN (19:45)
[2020-12-20] MEDS ORDERED: ONDANSETRON 4 MG/2 ML VIAL IVP PRN (19:45)
[2020-12-20] MEDS ORDERED: ACETAMINOPHEN TAB 325 MG TAB PO PRN (19:45)
[2020-12-20] MEDS ORDERED: IBUPROFEN 400 MG TAB PO PRN (19:45)
[2020-12-20] MEDS ORDERED: MORPHINE SULFATE 4 MG/ML SYRINGE IV PRN (19:45)
[2020-12-20] MEDS ORDERED: NICOTINE 7MG/24HR PATCH TRANSDERM STA (19:49)
[2020-12-20] MEDS ORDERED: traZODone HCL 50 MG TAB PO PRN (22:06)
[2020-12-21 08:05] VITALS: BP 121/73; PULSE 44; RESP 16; TEMP 97.6
[2020-12-21] MEDS ORDERED: SERTRALINE 100 MG TAB PO SCH (09:00)
[2020-12-21] MEDS ORDERED: CYCLOBENZAPRINE 10 MG TAB PO PRN (09:42)
--- NOTE | 2020-12-21 09:42 | P.CNOR ---
History of Present Illness - [facility] Consult date: 12/21/20 Requesting physician: Everardo Rodriguez Consult reason: neck pain (Cervicothoracic pain) History of present illness: Patient is a very pleasant 25-year-old male who is seen and examined at the bedside for further evaluation of his thoracolumbar spine. He states over the past 3 days he has had worsening pain in the posterior cervical spine and upper thoracic spine. He denies any injuries. He denies any upper extremity weakness or radiculopathy bilaterally. He denies fever and chills. He is voiding without difficulty. He states he does have increased posterior cervical pain and upper thoracic spine pain with active range of motion of the cervical spine. 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 He states after work Monday his symptoms have continued to worsen over the weekend. He presented to [facility] for further treatment evaluation yesterday as his symptoms were not well-controlled at home. He states he has difficulty with all regular activities of daily living given his pain. Has difficulty with sleeping and with sitting upright. His pain is increased with active range of motion of cervical spine and with movement of his shoulders. He has been receiving Dilaudid in [place] during his admission to the hospital which has helped improved his pain to some degree. He has no other reported significant medical diagnoses. He is a current smoker. He was evaluated in emergency department for meningitis document state this was ruled out. CT imaging of his thoracolumbar spine was taken during his admission to the hospital. Past Medical History Past Medical History: No Reported History History of Any Multi-Drug Resistant Organisms: None Reported Past Surgical History: No Surgical Hx Reported Past Psychological History: No Psychological Hx Reported Smoking Status: Current some day smoker Past Alcohol Use History: Occasional Past Drug Use History: Marijuana - Past Family History fa,patricia Family Medical History: No Reported History Medications and Allergies Home Medications Medication Instructions Recorded Confirmed Type Sertraline [Zoloft] 100 mg PO DAILY #30 tab 06/10/20 12/20/20 Rx traZODone HCL [Desyrel] 50 mg PO HS PRN #30 tab 06/10/20 12/20/20 Rx Allergies Allergy/AdvReac Type Severity Reaction Status Date / Time No Known Allergies Allergy Verified 12/20/20 17:53 Physical Examination Physical exam: Patient is awake, alert, and oriented 3 Vital signs stable Good chest excursion with deep inspiration and expiration Examination of the cervical spine and thoracic spine reveals skin is intact with no abrasions, lacerations, or bruises; no erythema, purulence or signs of infection Adequate but painful of motion of the cervical spine with adequate flexion, extension, and bilateral rotation Some pain with palpation over the posterior paraspinal muscles of the cervical spine and over the paraspinals of the upper thoracic spine Evidence of paravertebral spasm over the posterior inferior cervical spine and upper thoracic spine No pain with palpation over the mid to lower thoracic spine Gang Supervisor strength, thumb strength, interosseous strength, biceps strength, triceps strength, and shoulder strength positive sustained bilaterally Upper extremity strength 5/5 bilaterally Biceps reflex 2+ bilaterally and Brachioradialis reflexes 2+ bilaterally No upper extremity hyperreflexia bilaterally Hoffmans sign negative upper extremity bilaterally Results Pertinent studies: CT of the cervical and thoracic spine taken on 12/20/2020: Negative computed tomography scan of the cervical and thoracic spine; overall alignment is adequately maintained; no evidence of compression fracture deformity; no significant degenerative disc disease; no focal bone destruction Assessment and Plan Assessment: Assessment: Acute cervicothoracic myalgia Cervicothoracic paravertebral spasm Current smoker (1) Pain of cervicothoracic region of spine Current Visit: Yes Status: Acute Code(s): QIS8290 - SNOMED Code(s): 67623875 (2) Myalgia of auxiliary muscles, head and neck Current Visit: Yes Status: Acute Code(s): M79.12 - MYALGIA OF AUXILIARY MUSCLES, HEAD AND NECK SNOMED Code(s): 57067703 (3) Current smoker Current Visit: Yes Status: Acute Code(s): F17.200 - NICOTINE DEPENDENCE, UNSPECIFIED, UNCOMPLICATED SNOMED Code(s): 55476441 Plan: Plan: 1. After reviewing of imaging, physical examination of the patient, and further discussion with the patient, we will plan to continue conservative treatment at this time. He's had increased worsening myalgia and spasm over the posterior cervical spine and upper thoracic spine over the past 3 days without injury. He is able to perform active range of motion bilateral upper extremities without difficulty. He has had no neurological changes of the bilateral upper extremities. He denies any weakness in bilateral upper extremities. He has no evidence of hyperreflexia the upper extremities. Negative Thompson's sign the bilaterally upper extremities. He does have some increased posterior cervical pain and most significant at the inferior cervical spine and upper thoracic spine with active range of motion of the cervical spine and with range of motion of the trapezius bilaterally. He does have some pain with palpation over the thoracolumbar junction. He has had some benefit with medications during his admission including Dilaudid and hydrocodone. We did discuss he could benefit with a muscle relaxer. Will plan to have cyclobenzaprine 10 mg one tab 3 times a day as needed for muscle spasm. We also discussed the benefit with treatment evaluation with physical therapy. We will plan for consultation with physical therapy. At this time, we're not currently planning for any acute surgical intervention in regards to his cervical thoracic spine as we do not feel there any indications in which surgical intervention would provide any significant improvement of his symptoms. Would recommend exhausting all conservative treatment options. Patient does feel this is a good plan of care. We did discuss that if he continues to improve, he is clear for discharge from an orthopedic spine standpoint. We did discuss with plan have him follow-up in the outpatient setting.Patient may follow-up with Eldon Serrano PA-C or Dr. Zaheer Centeno at [facility] in 2-3 weeks following discharge. 2. Patient will continue be seen in exam by medicine 3. Continue medications as prescribed as needed for pain control 4. Patient waiting for evaluation by physical therapy Time with Patient: Greater than 30 (Including obtaining history, physical examination, reviewing of imaging, and dictation.)
--- NOTE | 2020-12-21 11:56 | P.HPIM ---
History of Present Illness 25-year-old the male came in with the complains of pain in the neck patient doesn't have any symptoms of radiculopathy patient denied any weakness in the hands. Patient has a CT of the thoracal lumbar spine which did not show any significant abnormality patient was evaluated by orthopedic surgery/spinal surgery no further intervention is being recommended cyclobenzaprine is being recommended at this time patient was mainly complaining of stiffness in the neck muscles. Patient doesn't have any fever chills patient doesn't have any photophobia. REVIEW OF SYSTEMS: CONSTITUTIONAL: No fever, no malaise, no fatigue. HEENT: No recent visual problems or hearing problems. Denied any sore throat. CARDIOVASCULAR: No chest pain, orthopnea, PND, no palpitations, no syncope. PULMONARY: No shortness of breath, no cough, no hemoptysis. GASTROINTESTINAL: No diarrhea, no nausea, no vomiting, no abdominal pain. NEUROLOGICAL: No headaches, no weakness, no numbness. HEMATOLOGICAL: Denies any bleeding or petechiae. GENITOURINARY: Denies any burning micturition, frequency, or urgency. MUSCULOSKELETAL/RHEUMATOLOGICAL: As mentioned in HPI ENDOCRINE: Denies any polyuria or polydipsia. The rest of the 14-point review of systems is negative. PHYSICAL EXAMINATION: GENERAL: The patient is alert and oriented x3, not in any acute distress. Well developed, well nourished. HEENT: Pupils are round and equally reacting to light. EOMI. No scleral icterus. No conjunctival pallor. Normocephalic, atraumatic. No pharyngeal erythema. No thyromegaly. CARDIOVASCULAR: S1 and S2 present. No murmurs, rubs, or gallops. PULMONARY: Chest is clear to auscultation, no wheezing or crackles. ABDOMEN: Soft, nontender, nondistended, normoactive bowel sounds. No palpable organomegaly. MUSCULOSKELETAL: Deferred to orthopedic surgery EXTREMITIES: No cyanosis, clubbing, or pedal edema. NEUROLOGICAL: Gross neurological examination did not reveal any focal deficits. SKIN: No rashes. Assessment and plan -Cervical muscle spasm cervicothoracic and myalgia: Patient will be advised to use heat packing patient will be discharged on muscle relaxants and Motrin for pain. CT of the head and neck did not show any significant abnormality -Nicotine use: Counseling was provided -Sinus bradycardia mostly when he sleeps no further intervention at this time Physical therapy and occupational therapy evaluated the patient patient will follow-up with PT as an outpatient patient will be discharged today. DVT prophylaxis: Ambulation Past Medical History Past Medical History: No Reported History History of Any Multi-Drug Resistant Organisms: None Reported Past Surgical History: No Surgical Hx Reported Past Psychological History: No Psychological Hx Reported Smoking Status: Current some day smoker Past Alcohol Use History: Occasional Past Drug Use History: Marijuana - Past Family History fa,patricia Family Medical History: No Reported History Medications and Allergies Home Medications Medication Instructions Recorded Confirmed Type Sertraline [Zoloft] 100 mg PO DAILY #30 tab 06/10/20 12/20/20 Rx traZODone HCL [Desyrel] 50 mg PO HS PRN #30 tab 06/10/20 12/20/20 Rx Cyclobenzaprine [Flexeril] 10 mg PO TID PRN #30 tab 12/21/20 Rx Famotidine [Pepcid] 20 mg PO BID #30 tablet 12/21/20 Rx Ibuprofen [Motrin] 400 mg PO Q6HR PRN #30 tab 12/21/20 Rx Allergies Allergy/AdvReac Type Severity Reaction Status Date / Time No Known Allergies Allergy Verified 12/20/20 17:53 Physical Exam Vitals: Vital Signs Temp Pulse Pulse Resp BP BP Pulse Ox 12/21/20 07:00 97.6 F 44 L 16 121/73 98 12/21/20 02:00 18 12/21/20 01:20 98.2 F 60 16 122/76 97 12/20/20 20:43 98.3 F 64 18 119/72 96 12/20/20 20:12 71 16 122/71 97 12/20/20 16:55 98.6 F 62 16 133/84 97 Intake and Output 12/20/20 12/21/20 12/21/20 22:59 06:59 14:59 Intake Total 200 Balance 200 Intake: Oral 200 Other: # Voids 1 2 Weight 97.522 kg Thrombosis Risk Factor Assmnt - Choose All That Apply Any of the Below Risk Factors Present?: Yes Each Factor Represents 1 point: Obesity (BMI >25) Other Risk Factors: No Other congenital or acquired thrombophilia - If yes, enter type in comment: No Thrombosis Risk Factor Assessment Total Risk Factor Score: 1 Thrombosis Risk Factor Assessment Level: Low Risk
--- NOTE | 2020-12-21 11:57 | P.DS ---
Providers Date of admission: 12/20/20 19:53 Attending physician: Esther Pak MD Consults: 12/20/20 19:46 Consult Physician Routine Consulting Provider: Jasson Zaidi Consult Reason/Comments: Intractable back pain Do you want consulting provider notified?: Yes Primary care physician: Stated None Hospital Course: Please refer to HPI for further details Patient Condition at Discharge: Stable Plan - Discharge Summary Discharge Rx Participant: No New Discharge Prescriptions: New Ibuprofen [Motrin] 400 mg PO Q6HR PRN #30 tab PRN Reason: Mild Pain Or Fever > 100.5 Famotidine [Pepcid] 20 mg PO BID #30 tablet Cyclobenzaprine [Flexeril] 10 mg PO TID PRN #30 tab PRN Reason: Muscle Spasm Continue traZODone HCL [Desyrel] 50 mg PO HS PRN #30 tab PRN Reason: Insomnia Sertraline [Zoloft] 100 mg PO DAILY #30 tab Discharge Medication List Sertraline [Zoloft] 100 mg PO DAILY #30 tab 06/10/20 [Rx] traZODone HCL [Desyrel] 50 mg PO HS PRN #30 tab 06/10/20 [Rx] Cyclobenzaprine [Flexeril] 10 mg PO TID PRN #30 tab 12/21/20 [Rx] Famotidine [Pepcid] 20 mg PO BID #30 tablet 12/21/20 [Rx] Ibuprofen [Motrin] 400 mg PO Q6HR PRN #30 tab 12/21/20 [Rx] Follow up Appointment(s)/Referral(s): aHrish Velázquez MD [STAFF PHYSICIAN] - 1 Week Eldon Serrano PAC [PHYSICIAN CIRCLE CUTTING SAW OPERATOR] - 2 Weeks (Patient may follow-up with Eldon Serrano PA-C or Dr. Zaheer Centeno at [facility] in 2-3 weeks following discharge. ) Patient Instructions/Handouts: Back Pain (GEN) Activity/Diet/Wound Care/Special Instructions: activity as tolerated regular diet Discharge Disposition: HOME SELF-CARE
== END 2020-12-21 13:40 | disposition home or self-care (01) ==
LOC: EC 16:51 → 6NMEDSUR 19:53
PROVIDERS: ADMIT Internal Medicine; ATTEND Internal Medicine
DX: M62.838 Other muscle spasm (principal); M54.2 Cervicalgia; G43.909 Migraine, unspecified, not intractable, without status migrainosus; M54.6 Pain in thoracic spine; R00.1 Bradycardia, unspecified; F17.200 Nicotine dependence, unspecified, uncomplicated; Z79.899 Other long term (current) drug therapy; Z71.6 Tobacco abuse counseling; E66.9 Obesity, unspecified; Z68.32 Body mass index [BMI] 32.0-32.9, adult; Z86.59 Personal history of other mental and behavioral disorders
CPT/HCPCS: 99284; 96372; 97161; 72128; 72125; G0378 ×2; S4990; J1170